=== PATIENT | female | born 1945 | race African-American/Black ===

== ENCOUNTER 2019-12-19 19:27 | Inpatient (IN) | payer MEDICARE, MEDICAID ==
[~2019-12-19] VITALS: Ht 160 cm; Wt 72.6 kg
[2019-12-19] MEDS ORDERED: SODIUM CHLORIDE 0.9% 1,000 ML IV ONE (20:15)
[2019-12-19] MEDS ORDERED: ASPIRIN 300MG SUPP PR ONE (20:15)
[2019-12-19] MEDS ORDERED: IOHEXOL-350 100 ML BOTTLE ONE (20:25)
[2019-12-19 20:37] LABS: HEMATOCRIT. 30.9 % (36.0-48.0); HEMOGLOBIN. 9.9 g/dL (12.0-16.0); MEAN CORPUSCULAR VOLUME 78.5 fL (81.0-99.0); MEAN PLATELET VOLUME 8.8 fl (7.4-10.4); PLATELET 206 x1000/uL (130-400); RED BLOOD CELL COUNT 3.94 mill/uL (4.2-5.4); RED CELL DISTRIBUTION WIDTH 18.8 % (11.6-14.6)
[2019-12-19 20:41] LABS: CHLORIDE 102 mEq/L (98-107)
[2019-12-19 20:45] LABS: ETHANOL BLOOD < 10 mg/dL; INR 1.2
[2019-12-19] MEDS ORDERED: CEFTRIAXONE 1 G PREMIX 50 ML IV SCH ×2 (20:45→23:45)
[2019-12-19 20:47] LABS: LDL CHOLESTEROL 66 mg/dL (5-100)
[2019-12-19 20:58] LABS: PLATELET ESTIMATE NORMAL
[2019-12-19 22:32] LABS: BG BASE EXCESS -5.3 mmol/L (-2.0-2.0); BG CARBOXYHEMOGLOBIN 0.3 % (0.5-1.5); BG DEOXYHEMOGLOBIN 8.1 % (0.0-5.0); BG FRACTION INSPIRED OXYGEN 21; BG HCO3 ACT 17.8 mmol/L (22.0-26.0); BG OXYGEN SATURATION 91.9 % (92.0-98.5); BG OXYHEMOGLOBIN 91.6 % (94.0-97.0); BG PCO2 27.2 mmHg (35.0-45.0); BG PH 7.434 (7.350-7.450); BG PO2 61.3 mmHg (75.0-100.0); BG SAMPLE SITE RIGHT RADIAL; BG TOTAL HEMOGLOBIN 10.5 g/dL (12.0-18.0); BG VENT MODE ROOM AIR
[2019-12-19] MEDS: SODIUM CHLORIDE 0.9% 1,000 ML IV SCH (23:44)
[2019-12-19] MEDS ORDERED: CLONIDINE 0.1MG TABLET PO PRN (23:45)
[2019-12-19] MEDS ORDERED: ACETAMINOPHEN 650MG/20.3ML UDC PO PRN ×2 (23:45)
[2019-12-19] MEDS ORDERED: ONDANSETRON HCL 4MG/2ML INJ IV PRN (23:45)
[2019-12-19] MEDS ORDERED: DIPHENHYDRAMINE 50MG/ML VIAL IV PRN (23:45)
[2019-12-20 00:29] LABS: CLARITY URINE CLEAR (CLEAR); COLOR URINE YELLOW (YELLOW); KETONES URINE NEGATIVE (NEGATIVE); LEUKOCYTE ESTERASE URINE 3+ (NEGATIVE); NITRITE URINE NEGATIVE (NEGATIVE); OCCULT BLOOD URINE 2+ (NEGATIVE); PROTEIN URINE 2+ (NEGATIVE); SPECIFIC GRAVITY URINE 1.025 (1.005-1.030); UROBILINOGEN URINE 0.2 E.U./dL (0.2-1.0)
[2019-12-20 00:47] LABS: *AMPHETAMINES SCREEN URINE NEGATIVE (NEGATIVE)
[2019-12-20 00:48] LABS: *BARBITURATES SCREEN URINE NEGATIVE (NEGATIVE); *BENZODIAZEPINES SCREEN URINE NEGATIVE (NEGATIVE); *COCAINE SCREEN URINE NEGATIVE (NEGATIVE); CANNABINOID URINE SCREEN NEGATIVE (NEGATIVE); METHADONE URINE SCREEN NEGATIVE (NEGATIVE); OPIATES URINE SCREEN NEGATIVE (NEGATIVE); PHENCYCLIDINE URINE SCREEN NEGATIVE (NEGATIVE)
[2019-12-20] MEDS ORDERED: ENOXAPARIN 30MG/0.3ML SYR SUBCUT SCH ×2 (09:00→20:00)
[2019-12-20 10:00] VITALS: BP 153/69
[2019-12-20] MEDS: ASPIRIN 81MG EC TABLET PO SCH (10:06)
[2019-12-20] MEDS: FAMOTIDINE 20MG/2ML VIAL IV SCH (10:06)
[2019-12-20 12:00] VITALS: BP 156/68
[2019-12-20] MEDS ORDERED: ALEN5TAB PO (13:04)
[2019-12-20] MEDS ORDERED: [UNRECOGNIZED DRUG - CODE] PO (13:04)
[2019-12-20] MEDS ORDERED: ATOR10TA69 PO (13:04)
[2019-12-20] MEDS ORDERED: CHOL40002 PO (13:04)
[2019-12-20] MEDS ORDERED: METO25TA6 PO (13:04)
[2019-12-20] MEDS ORDERED: FAMO40TA7 PO (13:04)
[2019-12-20 16:21] VITALS: BP 146/70
[2019-12-20] MEDS: SODIUM CHLORIDE 0.9% 1,000 ML IV SCH (17:21)
[2019-12-20] MEDS: AMPICILLIN 1,000 MG in SODIUM CHLORIDE 0.9% 50 ML IV SCH (18:49)
[2019-12-20 20:22] VITALS: BP 138/60
[2019-12-20] MEDS: CEFTRIAXONE 1,000 MG in DEXTROSE 5% WATER 50 ML IV SCH (21:26)
[2019-12-21] VITALS: BP 152/68
[2019-12-21] MEDS: AMPICILLIN 1,000 MG in SODIUM CHLORIDE 0.9% 50 ML IV SCH ×3 (01:41→17:07)
[2019-12-21 04:00] VITALS: BP 156/71
[2019-12-21 07:53] LABS: HEMATOCRIT. 28.4 % (36.0-48.0); HEMOGLOBIN. 9.1 g/dL (12.0-16.0); MEAN CORPUSCULAR HEMOGLOBIN 24.9 pg (28.0-32.0); PLATELET 190 x1000/uL (130-400); RED BLOOD CELL COUNT 3.64 mill/uL (4.2-5.4); RED CELL DISTRIBUTION WIDTH 18.1 % (11.6-14.6)
[2019-12-21 08:00] VITALS: BP 153/66
[2019-12-21] MEDS: ASPIRIN 81MG EC TABLET PO SCH (09:52)
[2019-12-21] MEDS: FAMOTIDINE 20MG/2ML VIAL IV SCH (09:52)
[2019-12-21] MEDS: SODIUM CHLORIDE 0.9% 1,000 ML IV SCH ×2 (09:52→15:23)
[2019-12-21 12:00] VITALS: BP 107/68
[2019-12-21] MEDS: ENOXAPARIN 60MG/0.6ML SYR SUBCUT SCH (15:23)
[2019-12-21 16:00] VITALS: BP 155/66
[2019-12-21 17:45] LABS: PLATELET ESTIMATE NORMAL
[2019-12-21 20:20] VITALS: BP 165/78
[2019-12-21] MEDS: ATORVASTATIN CALCIUM 10MG TABLET PO SCH (22:00)
[2019-12-21] MEDS: CEFTRIAXONE 1,000 MG in DEXTROSE 5% WATER 50 ML IV SCH (22:01)
[2019-12-22] VITALS: BP 169/82
[2019-12-22] MEDS: AMPICILLIN 1,000 MG in SODIUM CHLORIDE 0.9% 50 ML IV SCH ×3 (02:08→17:32)
[2019-12-22 04:00] VITALS: BP 155/75
[2019-12-22] MEDS: SODIUM CHLORIDE 0.9% 1,000 ML IV SCH ×2 (04:00→17:33)
[2019-12-22 08:00] VITALS: BP 168/78
[2019-12-22] MEDS ORDERED: MAG CARB PO SCH (09:00)
[2019-12-22] MEDS ORDERED: CALCIUM CARB PO SCH (09:00)
[2019-12-22] MEDS ORDERED: [UNRECOGNIZED DRUG - OTHER] PO SCH (09:00)
[2019-12-22] MEDS ORDERED: CHOLECALCIFEROL 4000 UNIT PO SCH (09:00)
[2019-12-22] MEDS ORDERED: FOLIC AC PO SCH (09:00)
[2019-12-22] MEDS: MAGNESIUM GLUCONATE 500MG TABLET PO SCH (09:01)
[2019-12-22] MEDS: CHOLECALCIFEROL (D3) 1000 UNIT TABLET PO SCH (09:01)
[2019-12-22] MEDS: FOLIC ACID 1MG TABLET PO SCH (09:02)
[2019-12-22] MEDS: ASPIRIN 81MG EC TABLET PO SCH (09:02)
[2019-12-22] MEDS: METOPROLOL TARTRATE 25MG TABLET PO SCH (09:03)
[2019-12-22] MEDS: CALCIUM CARBONATE 1250MG TABLET (500MG ELEMENTAL CALCIUM) PO SCH (09:28)
[2019-12-22 12:00] VITALS: BP 140/76
[2019-12-22] MEDS: FAMOTIDINE 20MG TABLET PO SCH (12:29)
[2019-12-22] MEDS: ENOXAPARIN 60MG/0.6ML SYR SUBCUT SCH (14:37)
[2019-12-22 16:00] VITALS: BP 136/67
[2019-12-22 16:59] LABS: HEMATOCRIT. 26.8 % (36.0-48.0); HEMOGLOBIN. 8.8 g/dL (12.0-16.0); MEAN CORPUSCULAR HEMOGLOBIN 25.3 pg (28.0-32.0); MEAN CORPUSCULAR VOLUME 76.9 fL (81.0-99.0); MEAN PLATELET VOLUME 8.7 fl (7.4-10.4); PLATELET 221 x1000/uL (130-400); RED BLOOD CELL COUNT 3.48 mill/uL (4.2-5.4); RED CELL DISTRIBUTION WIDTH 18.1 % (11.6-14.6)
[2019-12-22 18:52] LABS: PLATELET ESTIMATE NORMAL
[2019-12-22 20:00] VITALS: BP 149/81
[2019-12-22] MEDS: ATORVASTATIN CALCIUM 10MG TABLET PO SCH (21:24)
[2019-12-22] MEDS: CEFTRIAXONE 1,000 MG in DEXTROSE 5% WATER 50 ML IV SCH (21:24)
[2019-12-23] VITALS: BP 158/80
[2019-12-23] MEDS: AMPICILLIN 1,000 MG in SODIUM CHLORIDE 0.9% 50 ML IV SCH ×2 (01:33→10:03)
[2019-12-23 04:00] VITALS: BP 165/79
[2019-12-23 08:00] VITALS: BP 120/66
[2019-12-23] MEDS: FAMOTIDINE 20MG TABLET PO SCH (10:01)
[2019-12-23] MEDS: FOLIC ACID 1MG TABLET PO SCH (10:02)
[2019-12-23] MEDS: ASPIRIN 81MG EC TABLET PO SCH (10:02)
[2019-12-23] MEDS: CALCIUM CARBONATE 1250MG TABLET (500MG ELEMENTAL CALCIUM) PO SCH (10:02)
[2019-12-23] MEDS: CHOLECALCIFEROL (D3) 1000 UNIT TABLET PO SCH (10:02)
[2019-12-23] MEDS: MAGNESIUM GLUCONATE 500MG TABLET PO SCH (10:02)
[2019-12-23] MEDS: SODIUM CHLORIDE 0.9% 1,000 ML IV SCH (10:03)
[2019-12-23] MEDS: METOPROLOL TARTRATE 25MG TABLET PO SCH (10:04)
[2019-12-23 12:00] VITALS: BP 140/70
[2019-12-23] MEDS ORDERED: ENOXAPARIN 80MG/0.8ML SYR SUBCUT SCH (15:00)
[2019-12-23 16:00] VITALS: BP 132/74
[2019-12-23 17:17] VITALS: BP 132/74
== END 2019-12-23 18:20 | disposition home or self-care (01) | DRG 871 ==
LOC: EDBD 19:27 → ER 19:27 → MICUSO 22:03 → 5WST 12-20 07:36
PROVIDERS: ADMIT Internal Medicine; ATTEND Internal Medicine
DX: A41.9 Sepsis, unspecified organism (principal); E43 Unspecified severe protein-calorie malnutrition; G93.41 Metabolic encephalopathy; I82.401 Acute embolism and thrombosis of unspecified deep veins of right lower extremity; N17.9 Acute kidney failure, unspecified; N39.0 Urinary tract infection, site not specified; D64.9 Anemia, unspecified; R74.0 Nonspecific elevation of levels of transaminase and lactic acid dehydrogenase [LDH]; N18.9 Chronic kidney disease, unspecified; Z86.718 Personal history of other venous thrombosis and embolism; I69.30 Unspecified sequelae of cerebral infarction; Z87.440 Personal history of urinary (tract) infections; Z68.28 Body mass index [BMI] 28.0-28.9, adult; Z79.899 Other long term (current) drug therapy
CPT/HCPCS: 36415; 36600; 70496; 71045; 80048; 80053; 80305; 80320; 81003; 82375; 82805; 82962; 83721; 84484; 85025; 93005; 93970; 99291; J0290; J0696; J1650; J3490; J7030; J7060; Q9967; G0480